=== PATIENT | male | born 1950 | race Caucasian/White ===

== ENCOUNTER 2019-06-25 09:35 | Day surgery (SDC) | payer OTHER, SELFPAY ==
[2019-06-24 09:14] VITALS: BMI 27.5
--- NOTE | 2019-06-25 09:47 | ANES.PREANE2 ---
Pre-Anesthetic Assessment Pre-Anesthetic Assessment: Height/Weight: Height 1.73 m Weight 82.1 kg Preop Diagnosis: GERD Proposed Procedure: Operation Date: 06/25/19 11:30 Proposed Procedures p EGD 75534 K21.9(Not Applicable) - Blaise Winkler MD Last Intake: 18:00 Social: Packs per day: 1 Pack years: 40 Comment: quit 15y Exam: Pre-Anes Outpt Exam: alert, oriented x 3, clear to auscultation bilaterally and regular rate & rhythm Airway: Submandibular: WNL Cervical ROM: WNL MP: 1 Dentition: False CV/HEM: CV/HEM: HTN Comments: rx'd10y 2 blocks/FOS without MELO/angina GI: GI: GERD Anesthetic Plan: ASA status: II Anesthesia: MAC PFSH Anesthesia PFSH: Social History Smoking and tobacco status: never smoked Second hand smoke exposure: No Alcohol intake: never Adopted: No Caregiver/support person: Yes Lives independently: Yes Household members: spouse Housing: House Marital status: Highest education level completed: High School Graduate service: Yes Current occupational status: retired Current occupational exposures/hazards: No Pets and animals: Yes History of recent travel: No Sexually active: No Current gender identity: Male Martha/Mosque: Caodaism Special martha needs: No Agree to transfusion: No Financial difficulty paying for basics: Decline to Answer Data Anesthesia Cardiac Studies: No Data to Display
[2019-06-25 10:33] VITALS: BP 149/79; PULSE 58; RESP 18; TEMP 36.5; O2SAT 98
[2019-06-25] MEDS: sodium chloride 0.9% 1,000 ML 30 ML (10:36)
--- NOTE | 2019-06-25 11:08 | PM.HPUD ---
H&P update H&P Update: DATE OF SURGERY/PROCEDURE: 06/25/19 DATE H&P PERFORMED: 06/18/19 H&P UPDATE INFORMATION: H&P completed within last 30 days and No changes to prior documentation PREOP DIAGNOSIS: Esophagitis PLANNED PROCEDURE: Operation Date: 06/25/19 11:30 Proposed Procedures p EGD 13111 K21.9(Not Applicable) - Blaise Winkler MD Full H&P Perinent History: Medical/Surgical History: Medical History (Updated 06/19/19 @ 17:16 by Blaise Winkler MD) Carotid artery stenosis (Acute) Esophagitis (Acute) GERD (gastroesophageal reflux disease) (Acute) History of liver injury (Acute ~02/2019) Hyperlipidemia (Acute) Hypertension (Acute) Mass of adrenal gland (Acute) Family History: Family History (Updated 06/17/19 @ 10:25 by Maki James RN) Denies family history of Anesthesia complication Bleeding disorder Social History: Social History Smoking and tobacco status: never smoked Second hand smoke exposure: No Alcohol intake: never Adopted: No Caregiver/support person: Yes Lives independently: Yes Household members: spouse Housing: House Marital status: Highest education level completed: High School Graduate service: Yes Current occupational status: retired Current occupational exposures/hazards: No Pets and animals: Yes History of recent travel: No Sexually active: No Current gender identity: Male Martha/Buddhism: Sabianist Special martha needs: No Agree to transfusion: No Financial difficulty paying for basics: Decline to Answer
[2019-06-25 12:46] VITALS: BP 132/80; PULSE 72; RESP 16; TEMP 36.2; O2SAT 95
--- NOTE | 2019-06-25 12:52 | ANE.PACU2 ---
 Inpatient post-anesthesia follow up: Airway intact: Yes Vital signs: Temperature 97.7 F Pulse Rate 58 Respiratory Rate 18 Blood Pressure 149/79 Pulse Oximetry 98 Oxygen Delivery Me thod Room Air Oxygen Flow Rate Fraction of Inspir ed Oxygen Hydration adequate: Yes Nausea and vomiting: No Pain level: 1 Mental status: Baseline
[2019-06-25 13:02] VITALS: BP 111/63; PULSE 71; RESP 18; O2SAT 96
== END 2019-06-25 13:05 | disposition home or self-care (01) ==
PROVIDERS: Family Provider Emergency Medicine Emergency Medical Services; PCP Emergency Medicine Emergency Medical Services; Visit Provider Surgery
PROC: 0DJ08ZZ Inspection of Upper Intestinal Tract, Via Natural or Artificial Opening Endoscopic (ICD-10-PCS; CPT 43235; principal; 2019-06-25 11:30)
DX: K21.9 Gastro-esophageal reflux disease without esophagitis (principal); K29.70 Gastritis, unspecified, without bleeding; K44.9 Diaphragmatic hernia without obstruction or gangrene; Z79.82 Long term (current) use of aspirin; E78.5 Hyperlipidemia, unspecified; I10 Essential (primary) hypertension; F17.210 Nicotine dependence, cigarettes, uncomplicated
CPT/HCPCS: 12345; 43239; 88305; J2704; J7030

== ENCOUNTER 2019-07-16 07:36 | Outpatient (CLI) | payer OTHER, SELFPAY ==
--- NOTE | 2019-07-16 07:40 | NM_ITS ---
WS: [id number] NUCLEAR MEDICINE HIDA SCAN WITH GALLBLADDER EJECTION FRACTION HISTORY: ABDOMINAL PAIN COMPARISON: CT 10/15/2018 TECHNIQUE: The patient was intravenously injected with 8.6 mCi of TC99m Mebrofenin. Immediate imaging over the right upper quadrant was followed by 5 minute image and additional images for a total of 60 minutes. Normal uptake of radiotracer throughout the liver. Activity identified in the gallbladder at 30 minutes and well distended by 60 minutes. Activity in the proximal small bowel was seen by 20 minutes. Good washout of the radiotracer from the liver by 60 minutes. The patient then drank 8 ounces of Ensure Plus. Ejection fraction at 60 minutes was 71%. Normal GB ej ection fraction is 35-75%. Post fatty meal symptoms: None. NM/NM hepatobiliary w phar* [id number] IMPRESSION: 1. Normal HIDA scan. 2. Normal gallbladder ejection fraction.
== END 2019-07-16 07:37 | disposition home or self-care (01) ==
PROVIDERS: Family Provider Emergency Medicine Emergency Medical Services; PCP Emergency Medicine Emergency Medical Services; Visit Provider Surgery
DX: R10.9 Unspecified abdominal pain (principal)
CPT/HCPCS: 78227; A9537

== ENCOUNTER 2019-09-26 12:09 | Outpatient (CLI) | payer OTHER, SELFPAY ==
--- NOTE | 2019-09-26 12:23 | CT_ITS ---
WS: [id number] CT ABDOMEN PELVIS TECHNIQUE: Contrast-enhanced CT of the abdomen and pelvis with coronal and sagittal reformatted image s. CLINICAL INFORMATION: ADRENAL NODULE/ F/U COMPARISON: CT October 15, 2018 and June 28, 2018 DLP: 1169.[address] scans at [facility] use at least one of these dose optimization techniques: automat ed exposure control; mA and/or kV adjustment per patient size (includes targeted exams where dose is matched to clinical indication); or iterative reconstruction. FINDINGS: Diffuse fatty infiltration of the liver. Normal gallbladder. Normal portal vein and splenic vein. A f ew tiny low-attenuation lesions in the liver some too small to characterize likely represents tiny he patic cysts unchanged. Small splenule. Mild pancreatic atrophy. Right adrenal gland is normal. Left adrenal nodule measuring 15.8 mm likely represents adenoma and is unchanged. Slight atelectasis in the lung bases. Stable 10 mm peripancreatic lymph node. Normal renal parenchymal enhancement. Smal l bilateral renal cysts unchanged. No hydronephrosis. Sigmoid diverticulosis. No evidence of acute diverticulitis. No evidence of small or large bowel obst ruction. Normal caliber abdominal aorta. Aortic calcification. Grade 1 anterolisthesis L4 on L5 unchanged. Aortic calcification. Shotty periaortic lymph nodes. Norm al gastroesophageal junction. CT/CT abdomen pelvis w con* [id number] IMPRESSION: 1. Stable left adrenal nodule measuring 15 mm likely represents adrenal adenom a. 2. Diffuse fatty infiltration of the liver 3. Stable grade 1 anterolisthesis L4 on L5. 4. Sigmoid diverticulosis. No evidence of acute diverticulitis.
[2019-09-26 12:47] LABS: Blood Urea Nitrogen 14 mg/dL (8-23); Glomerular Filtration Rate 74.5 mL/min (90-130)
[2019-09-26] MEDS: iohexol 300 mg/mL 100 mL Btl IV (12:55)
== END 2019-09-26 12:10 | disposition home or self-care (01) ==
LOC: RADWPI 12:12
PROVIDERS: Family Provider Emergency Medicine Emergency Medical Services; PCP Emergency Medicine Emergency Medical Services; Visit Provider Emergency Medicine Emergency Medical Services
DX: E27.9 Disorder of adrenal gland, unspecified (principal); K76.0 Fatty (change of) liver, not elsewhere classified; K57.30 Diverticulosis of large intestine without perforation or abscess without bleeding
CPT/HCPCS: 74177; 82565; 84520; Q9967

== ENCOUNTER 2020-04-13 08:24 | Outpatient (CLI) | payer OTHER, SELFPAY ==
--- NOTE | 2020-04-13 08:33 | USCV_ITS ---
aClvin Emery Age: 69 Gender: M : 1950 Exam Date: 04/13/2020 08:30 Ordering Phys: Wilbert Herring DO Technologist: Nabor Padilla Exam Location: [facility] [place] Indication: CAROTID STENOSIS Risk Factors: Previous Vascular Surgery: Right Brachial BP: / Left Brachial BP: / Right Left Velocity (cm/s) Spectral Plaque Velocity (cm/s) Spectral Plaque Syst/Diast Broadening Syst/Diast Broadening 66.20/ 14.30 Prox CCA 89.30 / 24.10 79.80/ 20.20 Mid CCA 93.20 / 26.40 56.50/ 15.10 Distal CCA 71.50 / 22.50 84.10/ 28.30 Prox ICA 90.50 / 33.30 94.00/ 31.10 Mid ICA 87.00 / 30.30 71.50/ 31.10 Distal ICA 72.20 / 21.80 88.10 ECA 78.50 1.18 ICA/CCA 0.93 Antegrade Vertebral Antegrade 45.80/ 12.40 cm/s 71.50/ 21.80 cm/s Tri Subclavian Tri 52.10 55.90 FINDINGS Comparison: none available. No significant elevation of systolic or diastolic velocities. Diffuse, mild bilateral scattered calcified plaque and intimal thickening throughout the common carotid arteries and extending through the bifurcation. Antegrade vertebral arteries. CONCLUSIONS Bilateral ICA stenosis less than 50%. Mild diffuse atherosclerosis. Dr. Ann Hodges DO (Electronically Signed) Final Date: 13 April 2020 10:20 S
== END 2020-04-13 08:25 | disposition home or self-care (01) ==
LOC: RAD 08:27
PROVIDERS: PCP Emergency Medicine Emergency Medical Services; Visit Provider Emergency Medicine Emergency Medical Services
DX: I65.23 Occlusion and stenosis of bilateral carotid arteries (principal)
CPT/HCPCS: 93880

== ENCOUNTER → 2020-12-10 11:19 | Outpatient (BNVA) | payer OTHER, SELFPAY | PROVIDERS: PCP Emergency Medicine Emergency Medical Services; Visit Provider Surgery | DX: R19.8 Other specified symptoms and signs involving the digestive system and abdomen (principal); Z20.822 Contact with and (suspected) exposure to COVID-19 | CPT/HCPCS: 87635 ==

== ENCOUNTER 2020-12-16 09:45 | Day surgery (SDC) | payer OTHER, MEDICARE, SELFPAY ==
[2020-12-14 09:50] VITALS: BMI 27.3
--- NOTE | 2020-12-16 10:11 | ANES.PREANE2 ---
Pre-Anesthetic Assessment Pre-Anesthetic Assessment: Height/Weight: Height 1.73 m Weight 81.647 kg Preop Diagnosis: Esophagitis Proposed Procedure: Operation Date: 12/16/20 11:30 Proposed Procedures p Colonoscopy 39677 R19.8(Not Applicable) - Blaise Winkler MD Was Beta Vanna taken within 24 hours: N/A Was Clonidine taken within 24 hours: N/A Social: Social History: No alcohol Exam: Pre-Anes Outpt Exam: alert, oriented x 3, clear to auscultation bilaterally and regular rate & rhythm Airway: Submandibular: WNL Cervical ROM: WNL MP: 2 Dentition: False CV/HEM: CV/HEM: HTN GI: GI: GERD Anesthetic Plan: ASA status: 2 Anesthesia: MAC Risk of > 500 ml blood loss (7ml/kg in children): No PFSH Anesthesia PFSH: Medical History Carotid artery stenosis Esophagitis Biopsies were obtained from distal esophagitis to rule out Dunlap's esophagus GERD (gastroesophageal reflux disease) History of liver injury (~02/2019) Hyperlipidemia Hypertension Mass of adrenal gland Family History Denies family history of Anesthesia complication Bleeding disorder Social History Smoking and tobacco status: former smoker Second hand smoke exposure: No Alcohol intake: never Adopted: No Caregiver/support person: Yes Lives independently: Yes Household members: spouse Housing: House Marital status: Highest education level completed: High School Graduate service: Yes branch: [employer] branch details: 2 years of service Current occupational status: retired Current occupational exposures/hazards: No Pets and animals: Yes History of recent travel: No Sexually active: No Current gender identity: Male Martha/Christian: Rastafari Special martha needs: No Agree to transfusion: No Financial difficulty paying for basics: Decline to Answer Data Anesthesia Cardiac Studies: No Data to Display
[2020-12-16 10:54] VITALS: BP 155/90; PULSE 71; RESP 18; TEMP 36.2; O2SAT 99
--- NOTE | 2020-12-16 10:58 | P.HP_ITS ---
Same Day Surgery H&P Indication for Procedure/HPI DATE OF PROCEDURE: December 16, 2020 CHIEF COMPLAINT/INDICATIONFOR SURGICAL PROCEDURE: Anal discharge PREOP DIAGNOSIS: Abnormal anal discharge PLANNED PROCEDRUE: Operation Date: 12/16/20 11:30 Proposed Procedures p Colonoscopy 99387 R19.8(Not Applicable) - Blaise Winkler MD Patient comes today with concern about ongoing anal drainage mucousy in nature nonbloody and being transparent. Patient is well-known to me from previous clinical encounter as he did undergo a colonoscopy back in June 2018 and was found to have diverticulosis of the sigmoid colon, based on the recent complaint patient's primary care provider referred the patient for further evaluation and potential repeat colonoscopy. Patient reports that he has been experiencing this abdominal drainage since May 2020. Interim history 12/16/2020 Patient comes today for diagnostic colonoscopy ROS All systems have been reviewed negative except as per the above or per problem list Medications/Allergies* Home Medications Medication Instructions Recorded Confirmed Type amlodipine 10 mg tablet 10 mg PO DAILY 06/17/19 12/14/20 History finasteride 5 mg tablet 5 mg PO DAILY 06/17/19 12/14/20 History omeprazole 20 mg capsule,delayed 20 mg PO BID 06/17/19 12/14/20 History release aspirin 325 mg PO DAILY 06/24/19 12/14/20 History cholecalciferol (vitamin D3) 25 25 mcg PO DAILY 11/08/20 12/14/20 History mcg (1,000 unit) capsule rosuvastatin 5 mg tablet 5 mg PO DAILY 11/08/20 12/14/20 History Allergies/Adverse Reactions Allergy/AdvReac Type Severity Reaction Status Date / Time No Known Allergies Allergy Verified 12/16/20 11:29 Pertinent History/Comorbid Conditions* Medical History (Updated 11/11/20 @ 18:37 by Blaise Winkler MD) Carotid artery stenosis Esophagitis Biopsies were obtained from distal esophagitis to rule out Dunlap's esophagus GERD (gastroesophageal reflux disease) History of liver injury (~02/2019) Hyperlipidemia Hypertension Mass of adrenal gland Family History (Updated 06/17/19 @ 10:25 by Maki James RN) Denies family history of Anesthesia complication Bleeding disorder Social History Smoking and tobacco status: former smoker Second hand smoke exposure: No Alcohol intake: never Adopted: No Caregiver/support person: Yes Lives independently: Yes Household members: spouse Housing: House Marital status: Highest education level completed: High School Graduate service: Yes branch: [employer] branch details: 2 years of service Current occupational status: retired Current occupational exposures/hazards: No Pets and animals: Yes History of recent travel: No Sexually active: No Current gender identity: Male Martha/Baptist: Muslim Special martha needs: No Agree to transfusion: No Financial difficulty paying for basics: Decline to Answer Pertinent Exam Findings alert, oriented x 3, clear to auscultation bilaterally, regular rate & rhythm and procedure specific exam findings (Abdominal examination nontender nondistended) Recommendations Surgery/Procedure today (Diagnostic colonoscopy) Coding Level of Care Code Acute Inspector Electromechanical for Lily Amato
[2020-12-16] MEDS: sodium chloride 0.9% 1,000 ML 30 ML IV (11:09)
[2020-12-16 11:44] VITALS: BP 112/62; PULSE 66; RESP 16; TEMP 36.1; O2SAT 97
[2020-12-16 11:54] VITALS: BP 123/74; PULSE 63; RESP 16; O2SAT 97
--- NOTE | 2020-12-16 14:46 | ANE.PACU2 ---
Inpatient post-anesthesia follow up: Airway intact: Yes Vital signs: Temperature 97 F Pulse Rate 63 Respiratory Rate 16 Blood Pressure 123/74 Pulse Oximetry 97 Oxygen Delivery Me thod Room Air Oxygen Flow Rate Fraction of Inspir ed Oxygen Hydration adequate: Yes Nausea and vomiting: No Pain level: 1 Mental status: Baseline
== END 2020-12-16 12:30 | disposition home or self-care (01) ==
PROVIDERS: PCP Emergency Medicine Emergency Medical Services; Visit Provider Surgery
PROC: 0DJD8ZZ Inspection of Lower Intestinal Tract, Via Natural or Artificial Opening Endoscopic (ICD-10-PCS; CPT 45378; principal; 2020-12-16 11:30)
DX: K57.30 Diverticulosis of large intestine without perforation or abscess without bleeding (principal); R19.8 Other specified symptoms and signs involving the digestive system and abdomen; Z79.82 Long term (current) use of aspirin; K21.9 Gastro-esophageal reflux disease without esophagitis; E78.5 Hyperlipidemia, unspecified; I10 Essential (primary) hypertension; Z87.891 Personal history of nicotine dependence
CPT/HCPCS: 45378; 96360; J2704; J7030

== ENCOUNTER → 2021-08-01 08:11 | Outpatient (BNVA) | payer OTHER, SELFPAY | PROVIDERS: PCP Emergency Medicine Emergency Medical Services; Visit Provider Surgery | DX: Z20.822 Contact with and (suspected) exposure to COVID-19 (principal) | CPT/HCPCS: 87635 ==

== ENCOUNTER 2021-08-05 05:33 | Day surgery (SDC) | payer OTHER, SELFPAY ==
[2021-08-03 09:35] VITALS: BMI 27.3
[2021-08-05 06:06] VITALS: BP 169/88; PULSE 56; RESP 18; TEMP 36.1; O2SAT 99
[2021-08-05] MEDS: sodium chloride 0.9% 1,000 ML 30 ML IV (06:15)
--- NOTE | 2021-08-05 06:15 | P.HP_ITS ---
Same Day Surgery H&P Indication for Procedure/HPI DATE OF PROCEDURE: August 05, 2021 CHIEF COMPLAINT/INDICATIONFOR SURGICAL PROCEDURE: History of esophagitis PREOP DIAGNOSIS: History of esophagitis PLANNED PROCEDURE: Operation Date: 08/05/21 07:00 Proposed Procedures p EGD 81961/k20.9(Not Applicable) - Blaise Winkler MD 06/20/2021 Patient comes today for follow-up and he is well-known to me.? Undergone a diagnostic EGD back in June 2019 that showed features of distal esophagitis concerning of Dunlap's esophagus at that time and biopsies were obtained and the pathology did show; Esophagus, biopsies: Predominantly benign squamous type esophageal mucosa with changes of reflux No malignancy or dysplasia identified Eosinophils less than 2 per high-power field Small fragment of cardia type gastric mucosa present with chronic superficial gastritis, mild and focal without acute activity No Helicobacter-like organisms identified on H&E stain No intestinal metaplasia, dysplasia, or malignancy identified Patient seems that his symptoms are under control and has been on PPI therapy.,? He is referred to my practice for surveillance EGD 08/05/2021 Patient comes today for surveillance EGD ROS All systems have been reviewed negative except as per the above or per problem list Medications/Allergies* Home Medications Medication Instructions Recorded Confirmed Type amlodipine 10 mg tablet 10 mg PO DAILY 06/17/19 08/05/21 History finasteride 5 mg tablet 5 mg PO DAILY 06/17/19 08/05/21 History omeprazole 20 mg capsule,delayed 20 mg PO BID 06/17/19 08/05/21 History release aspirin 325 mg tablet 325 mg PO DAILY 06/24/19 08/05/21 History cholecalciferol (vitamin D3) 25 25 mcg PO DAILY 11/08/20 08/05/21 History mcg (1,000 unit) capsule rosuvastatin 5 mg tablet 5 mg PO DAILY 11/08/20 08/05/21 History losartan 50 mg tablet 50 mg PO DAILY 06/20/21 08/05/21 History Allergies/Adverse Reactions Allergy/AdvReac Type Severity Reaction Status Date / Time No Known Allergies Allergy Verified 08/05/21 06:16 Current Medications: Generic Name Dose Route Start Last Admin Trade Name Freq PRN Reason Stop Dose Admin Sodium Chloride 1,000 mls @ 30 mls/hr 08/05/21 06:00 03/18/22 06:15 Sodium Chloride 0.9% IV 30 mls/hr .Q24H BLAINE Administration Pertinent History/Comorbid Conditions* Medical History (Updated 01/16/21 @ 06:47 by Blaise Winkler MD) Carotid artery stenosis Diverticulosis Esophagitis Biopsies were obtained from distal esophagitis to rule out Dunlap's esophagus GERD (gastroesophageal reflux disease) History of liver injury (~02/2019) Hyperlipidemia Hypertension Mass of adrenal gland Family History (Updated 06/17/19 @ 10:25 by Maki James RN) Denies family history of Anesthesia complication Bleeding disorder Social History Smoking and tobacco status: never smoked Second hand smoke exposure: No Alcohol intake: never Adopted: No Caregiver/support person: Yes Lives independently: Yes Household members: spouse Housing: House Marital status: Highest education level completed: High School Graduate service: Yes branch: [employer] branch details: 2 years of service Current occupational status: retired Current occupational exposures/hazards: No Pets and animals: Yes History of recent travel: No Sexually active: No Current gender identity: Male Martha/Muslim: Church Special martha needs: No Agree to transfusion: No Financial difficulty paying for basics: Decline to Answer Pertinent Exam Findings alert, oriented x 3, regular rate & rhythm and procedure specific exam findings (Abdominal examination nontender nondistended soft) Recommendations Surgery/Procedure today (EGD with possible biopsy) Coding Level of Care Code Acute Leadership Program Internship for Lily Amato
--- NOTE | 2021-08-05 06:46 | ANES.PREANE2 ---
Pre-Anesthetic Assessment Height/Weight: Height 1.73 m Weight 81.647 kg Temp Pulse Resp BP Pulse Ox 97.0 F L 56 L 18 169/88 99 08/05/21 06:06 08/05/21 06:06 08/05/21 06:06 08/05/21 06:06 08/05/21 06:06 Preop Diagnosis: History of esophagitis Operation Date: 08/05/21 07:00 Proposed Procedures p EGD 98264/k20.9(Not Applicable) - Blaise Winkler MD Familial anesthetic complications: none Was Beta Vanna taken within 24 hours: N/A Was Clonidine taken within 24 hours: N/A Last intake: Intake Last Liquid Date 08/04/21 Last Liquid Time 22:00 Last Solid Date 08/04/21 Last Solid Time 15:00 Social No alcohol and No tobacco Exam alert, oriented x 3, clear to auscultation bilaterally and regular rate & rhythm Airway Submandibular: within normal limits Cervical ROM: within normal limits Mallampati: Class I Dentition: false Pulmonary None reported CV/HEM Hypertension None reported Hepatic None reported GI Gastroesophageal Reflux Disease (controlled) Metabolic Hyperlipidemia [facility] [place] None reported Neuropsych None reported Anesthetic Plan ASA status: 2 Anesthesia: MAC Risk of > 500 ml blood loss (7ml/kg in children): No Medications/Allergies Home Medications Medication Instructions Recorded Confirmed Last Taken Type amlodipine 10 mg tablet 10 mg PO DAILY 06/17/19 08/05/21 08/04/21 History finasteride 5 mg tablet 5 mg PO DAILY 06/17/19 08/05/21 08/04/21 History omeprazole 20 mg capsule,delayed 20 mg PO BID 06/17/19 08/05/21 08/04/21 History release aspirin 325 mg tablet 325 mg PO DAILY 06/24/19 08/05/21 08/04/21 History cholecalciferol (vitamin D3) 25 25 mcg PO DAILY 11/08/20 08/05/21 08/04/21 History mcg (1,000 unit) capsule rosuvastatin 5 mg tablet 5 mg PO DAILY 11/08/20 08/05/21 08/04/21 History losartan 50 mg tablet 50 mg PO DAILY 06/20/21 08/05/21 08/04/21 History Allergies Allergy/AdvReac Type Severity Reaction Status Date / Time No Known Allergies Allergy Verified 08/05/21 06:16 Current Medications Generic Name Dose Route Start Last Admin Trade Name Nery PRN Reason Stop Dose Admin Sodium Chloride 1,000 mls @ 30 mls/hr 08/05/21 06:00 08/05/21 06:15 Sodium Chloride 0.9% IV 30 mls/hr .Q24H BLAINE Administration PFSH Anesthesia Medical History Carotid artery stenosis Diverticulosis Esophagitis Biopsies were obtained from distal esophagitis to rule out Dunlap's esophagus GERD (gastroesophageal reflux disease) History of liver injury (~02/2019) Hyperlipidemia Hypertension Mass of adrenal gland Family History Denies family history of Anesthesia complication Bleeding disorder Social History Smoking and tobacco status: never smoked Second hand smoke exposure: No Alcohol intake: never Adopted: No Caregiver/support person: Yes Lives independently: Yes Household members: spouse Housing: House Marital status: Highest education level completed: High School Graduate service: Yes branch: [employer] branch details: 2 years of service Current occupational status: retired Current occupational exposures/hazards: No Pets and animals: Yes History of recent travel: No Sexually active: No Current gender identity: Male Martha/Scientologist: Amish Special marhta needs: No Agree to transfusion: No Financial difficulty paying for basics: Decline to Answer Data Anesthesia Cardiac Studies: No Data to Display
[2021-08-05 07:17] VITALS: BP 125/84; PULSE 65; RESP 12; TEMP 36.1; O2SAT 98
--- NOTE | 2021-08-05 07:20 | ANE.PACU2 ---
Inpatient post-anesthesia follow up: Airway intact: Yes Vital signs: Temperature 97.0 F Pulse Rate 56 Respiratory Rate 18 Blood Pressure 169/88 Pulse Oximetry 99 Oxygen Delivery Me thod Room Air Oxygen Flow Rate Fraction of Inspir ed Oxygen Hydration adequate: Yes Nausea and vomiting: No Pain level: 1 Mental status: Baseline
[2021-08-05 07:40] VITALS: BP 155/87; PULSE 59; RESP 16; TEMP 36.1; O2SAT 96
--- NOTE | 2021-08-05 08:05 | CTR_ITS ---
PROCEDURE INFORMATION: Exam: CT Abdomen And Pelvis With Contrast Exam date and time: 08/05/2021 9:36 AM Age: 71 years old Clinical indication: Condition or disease; Other: Mass; Additional info: F/u on renal mass TECHNIQUE: Imaging protocol: Computed tomography of the abdomen and pelvis with contrast. Radiation optimization: All CT scans at this facility use at least one of these dose optimization techniques: automated exposure control; mA and/or kV adjustment per patient size (includes targeted exams where dose is matched to clinical indication); or iterative reconstruction. Contrast material: OMNI 300; Contrast volume: 95 ml; Contrast route: INTRAVENOUS (IV); COMPARISON: CT abdomen pelvis w con* [id number] 09/26/2019 12:53 PM RADIATION DOSE METRICS: Total DLP (mGy-cm): 1014.13 FINDINGS: Liver: Unchanged subcentimeter lesions in the right hepatic lobe, likely representing cysts or hemangiomas. The liver is otherwise unremarkable. Gallbladder and bile ducts: Normal. No calcified stones. No ductal dilation. Pancreas: Normal. No ductal dilation. Spleen: A small accessory splenule is noted in the left upper quadrant. The spleen is unremarkable. Adrenal glands: Stable 1.9 cm left adrenal mass. The right adrenal gland is unremarkable. Kidneys and ureters: Symmetric enhancement of the kidneys. Stable 1.2 cm hypodense lesion in the left lower kidney. Additional subcentimeter focus of decreased attenuation in the right upper kidney is unchanged and too small to characterize. No hydronephrosis or nephrolithiasis. Stomach and bowel: There is diverticulosis without evidence of diverticulitis. Appendix: No evidence of appendicitis. Intraperitoneal space: Unremarkable. No free air. No significant fluid collection. Vasculature: Mild diffuse atherosclerotic disease is present. Lymph nodes: Unremarkable. No enlarged lymph nodes. Urinary bladder: Unremarkable as visualized. Reproductive: Unremarkable as visualized. Bones/joints: Degenerative changes of the spine with unchanged grade 1 anterolisthesis of L4. Soft tissues: Unremarkable. CT/CT abdomen pelvis w con* [id number] IMPRESSION: Stable left lower kidney lesion and left adrenal mass. Further evaluation with contrast enhanced abdomen MRI should be considered in the adequate clinical setting.
[2021-08-05] MEDS: iohexol 300 mg/mL 50 mL Btl PO (08:51)
[2021-08-05 09:20] LABS: Blood Urea Nitrogen 18 mg/dL (8-23); Glomerular Filtration Rate 66.4 mL/min (90-130)
[2021-08-05] MEDS: iohexol 300 mg/mL 100 mL Btl IV (09:41)
== END 2021-08-05 07:48 | disposition home or self-care (01) ==
PROVIDERS: PCP Emergency Medicine Emergency Medical Services; Visit Provider Surgery
PROC: 0DJ08ZZ Inspection of Upper Intestinal Tract, Via Natural or Artificial Opening Endoscopic (ICD-10-PCS; CPT 43235; principal; 2021-08-05 07:00)
DX: K20.90 Esophagitis, unspecified without bleeding (principal); K21.00 Gastro-esophageal reflux disease with esophagitis, without bleeding; K44.9 Diaphragmatic hernia without obstruction or gangrene; K29.70 Gastritis, unspecified, without bleeding; I10 Essential (primary) hypertension; E78.5 Hyperlipidemia, unspecified; Z79.82 Long term (current) use of aspirin; I25.10 Atherosclerotic heart disease of native coronary artery without angina pectoris
CPT/HCPCS: 43239; 74177; 82565; 84520; 88305; J7030; Q9967

== ENCOUNTER → 2021-10-11 15:11 | Outpatient (BNVA) | payer OTHER, SELFPAY | PROVIDERS: PCP Emergency Medicine Emergency Medical Services; Visit Provider Otolaryngology | DX: R49.0 Dysphonia (principal); K22.70 Barrett's esophagus without dysplasia; K20.90 Esophagitis, unspecified without bleeding; Z87.891 Personal history of nicotine dependence | CPT/HCPCS: 31575; 99204 ==

== ENCOUNTER 2022-06-23 06:43 | Outpatient (CLI) | payer OTHER, SELFPAY ==
--- NOTE | 2022-06-23 | USCV_ITS ---
Calvin Emery Age: 71 Gender: M : 1950 Exam Date: 06/23/2022 06:58 Ordering Phys: Wilbert Herring DO Technologist: KARL [place] [facility] [place]: AAA Screen HISTORY: Diameter (cm) AP x Transverse x Length Velocity (cm/s) Waveform Prox Aorta: 3.25 x 2.80 x 74.60 Triphasic Mid Aorta: 1.87 x 2.32 x 168.20 Triphasic Distal Aorta: 1.81 x 1.69 x 94.30 Triphasic Right Iliac Prox: 1.30 x 0.99 x 175.80 Triphasic Left Iliac Prox: 1.24 x 1.19 x 181.60 Triphasic Stent Prox Landing x x Aneurysmal Sac Max x x Lt Lat Sac Dim Rt Lat Sac Dim Stent Dist Landing x x Right Iliac Stent x x Left Iliac Stent x x Right Renal Art Left Renal Art FINDINGS: Comparison:. 10/08/18 Ectatic abdominal aorta with evidence of atherosclerotic plaque noted. No evidence of abdominal aortic aneurysm. Normal Doppler flow velocites noted throught the aorta and common iliac arteries. CONCLUSIONS No evidence of abdominal aortic or bilateral iliac aneurysm. Ectatic abdominal aorta with evidence of atherosclerotic plaque noted. Dr. Ann Hodges DO (Electronically Signed) Final Date: 23 June 2022 07:37 S
== END 2022-06-23 06:44 | disposition home or self-care (01) ==
LOC: RAD 06:46
PROVIDERS: PCP Emergency Medicine Emergency Medical Services; Visit Provider Emergency Medicine Emergency Medical Services
DX: Z13.6 Encounter for screening for cardiovascular disorders (principal); I77.811 Abdominal aortic ectasia
CPT/HCPCS: 76706